=== PATIENT | male | born 1955 | race African-American/Black ===

== ENCOUNTER 2020-04-05 12:35 | Emergency (ER) | payer OTHER ==
[~2020-04-05] VITALS: Ht 182.9 cm; Wt 81.8 kg
[~2020-04-05 12:35] MED LIST: CYCL10TA2 PO; HYDR30CR61 TP; METH4TAB2 PO; NAPR500T8 PO
[2020-04-05 12:45] VITALS: BP 137/89
[2020-04-05] MEDS ORDERED: LIDOCAINE (700MG/PATCH) PATCH. TD SCH (14:00)
[2020-04-05] MEDS ORDERED: diazePAM 5 MG TABLET PO ONE (14:00)
--- NOTE | 2020-04-05 14:09 | RAD ---
XR SHOULDER_RIGHT 2+ VIEWS History: Reason: shoulder pain, NO RECENT INJURY / Spl. Instructions: / History: Technique: 3 views right shoulder Comparison: None. Findings: Normal alignment of the right glenohumeral and acromioclavicular joints. Moderate right acromioclavic ular DJD. Mild glenohumeral DJD. No fracture. Impression: 1. No acute osseous abnormality. Electronically signed by: Nabil Birch DO (04/05/2020 2:07 PM) [id number]
--- NOTE | 2020-04-05 14:10 | RAD ---
XR CHEST 1V History: Reason: SHOULDER PAIN, NO RECENT INJURY / Spl. Instructions: / History: Comparison: None. Findings: No consolidation or pleural effusion. Normal heart size. No pneumothorax. Impression: 1. No acute cardiopulmonary process. Electronically signed by: Nabil Birch DO (04/05/2020 2:08 PM) [id number]
[2020-04-05 14:23] LABS: BILIRUBIN,URINE NEGATIVE (NEG); CLARITY,URINE CLEAR; COLOR,URINE YELLOW; NITRITE,URINE NEGATIVE (NEG); PROTEIN,URINE NEGATIVE (NEG-TRACE)
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
[2020-04-05 14:32] LABS: BACTERIA,URINE 0 /HPF (0-FEW); RBC,URINE 0 /HPF (0-2); WBC,URINE 0 /HPF (0-4)
[2020-04-05 14:37] LABS: BARBITURATES NEG (NEG); BENZODIAZEPINES NEG (NEG); CANNABINOIDS POS (NEG); COCAINE POS (NEG); METHADONE NEG (NEG); OPIATES NEG (NEG); PHENCYCLIDINE NEG (NEG)
[2020-04-05 14:39] LABS: AMPHETAMINE/METHAMPHETAMINE NEG (NEG)
[2020-04-05] MEDS ORDERED: METH-38 PO (15:43)
--- NOTE | 2020-04-05 20:27 | EKG ---
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
[2020-04-05] MEDS ORDERED: PATCH REMOVAL. MC SCH (21:00)
== END 2020-04-05 15:56 | disposition home or self-care (01) ==
LOC: ER 12:35
DX: M25.511 Pain in right shoulder (principal); G62.9 Polyneuropathy, unspecified; E78.00 Pure hypercholesterolemia, unspecified; I10 Essential (primary) hypertension; G89.29 Other chronic pain; F17.200 Nicotine dependence, unspecified, uncomplicated; Z88.0 Allergy status to penicillin
CPT/HCPCS: 71045; 73030; 80307; 81001; 93005; 99285

== ENCOUNTER 2020-08-21 07:32 | Emergency (ER) | payer OTHER ==
[~2020-08-21] VITALS: Ht 182.9 cm; Wt 75.0 kg
[~2020-08-21 07:32] MED LIST changes: +METH-38 PO
[2020-08-21 07:51] VITALS: BP 148/95
[2020-08-21] MEDS ORDERED: GUAI120L35 PO (08:05)
[2020-08-21] MEDS ORDERED: AZIT250T PO (08:05)
--- NOTE | 2020-08-21 08:05 | PHYS DOC ---
Past Medical History Past Medical History: High Cholesterol, Hypertension, Other Additional Past Medical Histor: CHRONIC BACK PAIN, Past Surgical History: Other Additional Past Surgical Histo: FACIAL RECONSTRUCTION FROM [facility], INGUINAL HERNIA Smoking Status: Current Every Day Smoker Alcohol Use: Occasionally Drug Use: None General Adult EDM: Chief Complaint: COUGH HPI: HPI: Patient is a 64 year old male past medical history hypertension hyperlipidemia and smoker presents with a chief complaint of cough with chest congestion. Patient states onset of symptoms this weekend. Patient has a cough with sputum production. Patient states he has some congestion in his chest and a sore throat. He denies any fevers. He states he has had chills but denies any nausea vomiting or diarrhea. Lungs were clear to auscultation. Oxygen saturation 100% on room air. Review of Systems: Review of Systems: Constitutional: Denies fever Positive chills. [] Eyes: Denies change in visual acuity. [] HENT: Denies nasal congestion Positive sore throat. [] Respiratory: Positive cough no shortness of breath. [] Cardiovascular: Denies chest pain or edema. [] GI: Denies abdominal pain, nausea, vomiting, bloody stools or diarrhea. [] : Denies dysuria. [] Musculoskeletal: Denies back pain or joint pain. [] Integument: Denies rash. [] Neurologic: Denies headache, focal weakness or sensory changes. [] Endocrine: Denies polyuria or polydipsia. [] Lymphatic: Denies swollen glands. [] Psychiatric: Denies depression or anxiety. [] Heart Score: C/O Chest Pain: N/A Risk Factors: Risk Factors: DM, Current or recent (<one month) smoker, HTN, HLP, family history of CAD, obesity. Risk Scores: Score 0 - 3: 2.5% MACE over next 6 weeks - Discharge Home Score 4 - 6: 20.3% MACE over next 6 weeks - Admit for Clinical Observation Score 7 - 10: 72.7% MACE over next 6 weeks - Early Invasive Strategies Allergies: Allergies: Allergies Coded Allergies Type Severity Reaction Last Updated Verified Penicillins Allergy Intermediate 03/28/15 Yes Physical Exam: PE: Review of systems: Constitutional symptoms- No fever, no chills. Eyes- No Discharge, No Visual Loss Respiratory symptoms- No shortness of breath, No wheezing, No Dyspnea on Exertion Cardiovascular Systems; No chest pain, No Palpitations, No syncope Gastrointestinal symptoms: NO abdominal pain, no nausea, no vomiting or diarrhea. Genitourinary symptoms: No dysuria. Musculoskeletal symptoms: No back pain No extremity pain. NEUROLOGICAL Symptoms: No headache, no generalized weakness; No focal Weakness Current Patient Data: Vital Signs: Vital Signs Date Time Temp Pulse Resp B/P (MAP) Pulse Ox O2 Delivery O2 Flow Rate FiO2 08/21/20 07:47 98.2 65 18 144/91 (108) 98 Room Air 98.2 EKG: EKG: [] Radiology/Procedures: Radiology/Procedures: [] Course & Med Decision Making: Course & Med Decision Making Pertinent Labs and Imaging studies reviewed. (See chart for details) [] On exam patient's lungs were clear. Patient will be discharged home on Zithromax and Robitussin with codeine. Dragon Disclaimer: Jitendra Disclaimer: This electronic medical record was generated, in whole or in part, using a voice recognition dictation system. Departure Departure Impression: Primary Impression: Cough Additional Impression: Bronchitis Disposition: 01 HOME / SELF CARE / HOMELESS Condition: STABLE Referrals: NO PCP (PCP) Patient Instructions: Acute Bronchitis, Cough, Adult Scripts Guaifenesin/Codeine Phosphate (Codeine-Guaifen 10-100 mg/5 ml) 120 Ml Liquid 5-10 ML PO PRN Q6HRS PRN for cough and congestion MDD 20 Milliliter(s) for 6 Days, #200 ML 0 Refills Prov: BARBIE SALAS DO 08/21/20 Azithromycin (ZITHROMAX) 250 Mg Tablet 1 PKG PO UD, #6 TAB Prov: BARBIE SALAS DO 08/21/20 BARBIE SALAS DO Aug 21, 2020 08:05
== END 2020-08-21 08:35 | disposition home or self-care (01) ==
LOC: ER 07:32
DX: J40 Bronchitis, not specified as acute or chronic (principal); E78.00 Pure hypercholesterolemia, unspecified; I10 Essential (primary) hypertension; G89.29 Other chronic pain; F17.200 Nicotine dependence, unspecified, uncomplicated; Z88.0 Allergy status to penicillin
CPT/HCPCS: 99283

== ENCOUNTER 2020-09-16 13:45 | Emergency (ER) | payer OTHER ==
[~2020-09-16] VITALS: Ht 175.3 cm; Wt 74.9 kg
[~2020-09-16 13:45] MED LIST changes: +AZIT250T PO; +GUAI120L35 PO
[2020-09-16 15:23] VITALS: BP 129/90
[2020-09-16] MEDS ORDERED: AZIT250T6 PO ×2 (17:35→17:38)
[2020-09-16] MEDS ORDERED: HYDR-2761 PO ×2 (17:35→17:38)
[2020-09-16] MEDS ORDERED: BENZ100C PO ×2 (17:35→17:38)
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
== END 2020-09-16 17:46 | disposition home or self-care (01) ==
LOC: ER 13:45
DX: J40 Bronchitis, not specified as acute or chronic (principal); K08.89 Other specified disorders of teeth and supporting structures; E78.00 Pure hypercholesterolemia, unspecified; I10 Essential (primary) hypertension; G89.29 Other chronic pain; F17.200 Nicotine dependence, unspecified, uncomplicated; Z88.0 Allergy status to penicillin
CPT/HCPCS: 99283

== ENCOUNTER 2021-04-04 17:27 | Emergency (ER) | payer OTHER ==
[~2021-04-04] VITALS: Ht 182.9 cm; Wt 76.0 kg
[~2021-04-04 17:27] MED LIST changes: +AZIT250T6 PO; +BENZ100C PO; +CYCL10TA19 PO; -CYCL10TA2 PO; +HYDR-2761 PO
[2021-04-04 17:52] VITALS: BP 131/86
--- NOTE | 2021-04-04 18:32 | PHYS DOC ---
Past Medical History Past Medical History: High Cholesterol, Hypertension, Other Additional Past Medical Histor: CHRONIC BACK PAIN, Past Surgical History: Other Additional Past Surgical Histo: FACIAL RECONSTRUCTION FROM [facility], INGUINAL HERNIA Smoking Status: Current Every Day Smoker Additional Information: > 1 PPD Alcohol Use: Occasionally Drug Use: None General Adult EDM: Chief Complaint: Congestion HPI: HPI: Patient is a 65 year old male who presents with 7 days of sinus congestion. Denies fever, chills, body aches, chest pain, shortness of breath, sore throat, difficulty swallowing. States he has had this on and off for several years. Sinus congestion is on both sides of his face over the maxilla. Sometimes feels like the congestion also involves the back of his head and his ears. Has been taking Advil PM for symptomatic relief. Review of Systems: Review of Systems: Constitutional: Denies fever or chills. [] Eyes: Denies change in visual acuity. [] HENT: Reports sinus congestion. Denies sore throat. [] Respiratory: Denies cough or shortness of breath. [] Cardiovascular: Denies chest pain or edema. [] GI: Denies abdominal pain, nausea, vomiting, bloody stools or diarrhea. [] : Denies dysuria. [] Musculoskeletal: Denies back pain or joint pain. [] Integument: Denies rash. [] Neurologic: Denies headache, focal weakness or sensory changes. [] . [] Psychiatric: Denies depression or anxiety. [] Heart Score: C/O Chest Pain: No Allergies: Allergies: Allergies Coded Allergies Type Severity Reaction Last Updated Verified Penicillins Allergy Intermediate 03/28/15 Yes Physical Exam: PE: Constitutional: Disheveled appearing, malodorous, wearing old hospital issued socks HENT: Mild tenderness to percussion over bilateral maxillary sinuses, oropharynx clear without exudates, uvula midline, no stridor. Cardiovascular:Heart rate regular rhythm, no murmur [] Lungs & Thorax: Bilateral breath sounds clear to auscultation [] Abdomen: Bowel sounds normal, soft, no tenderness, no masses, no pulsatile masses. [] Skin: Warm, dry, no erythema, no rash. [] Back: No tenderness, no CVA tenderness. [] Extremities: No tenderness, no cyanosis, no clubbing, ROM intact, no edema. [] Neurologic: Alert and oriented X 3, normal motor function, normal sensory function, no focal deficits noted. [] Psychologic: Affect normal, judgement normal, mood normal. [] Current Patient Data: Vital Signs: Vital Signs Date Time Temp Pulse Resp B/P (MAP) Pulse Ox O2 Delivery O2 Flow Rate FiO2 04/04/21 17:52 97.8 73 19 131/86 (101) 97 Room Air 97.8 EKG: EKG: [] Radiology/Procedures: Radiology/Procedures: [] Course & Med Decision Making: Course & Med Decision Making Pertinent Labs and Imaging studies reviewed. (See chart for details) Patient is 65-year-old male who presents with 7 days of isolated nasal congestion. He is afebrile, hemodynamically stable, well-appearing on exam. Symptoms are bilateral, and he has no history of fevers. Appears to be sinusitis. Given <10 days and no evidence of bacterial disease antibiotics were deferred. When I explained this to the patient he became upset and left prior to completing his work-up which was to include Covid testing. Jitendra Disclaimer: Jitendra Disclaimer: This electronic medical record was generated, in whole or in part, using a voice recognition dictation system. Departure Departure Impression: Primary Impression: Left against medical advice Additional Impression: Congestion of nasal sinus Disposition: LEFT AGAINST MEDICAL ADVICE Condition: STABLE VALERIO HORNER MD Apr 04, 2021 18:32
== END 2021-04-04 18:25 | disposition left against medical advice (07) ==
LOC: ER 17:27
DX: R09.81 Nasal congestion (principal); E78.00 Pure hypercholesterolemia, unspecified; I10 Essential (primary) hypertension; F17.200 Nicotine dependence, unspecified, uncomplicated; G89.29 Other chronic pain; Z88.0 Allergy status to penicillin
CPT/HCPCS: 99281